=== PATIENT | male | born 1950 | race Caucasian/White ===

== ENCOUNTER 2022-12-23 12:14 | Emergency (ER) | payer MEDICARE, SELFPAY ==
--- NOTE | ~2022-12-23 | XR_ITS ---
EXAMINATION: XR chest 2V DATE: 12/23/2022 12:57 INDICATION: Mid chest pain. TECHNIQUE: Frontal and lateral views of the chest were obtained. COMPARISON: Chest 2 views 07/04/2014 FINDINGS: There is no pneumonia, pleural effusion, or pneumothorax. The heart size is normal. IMPRESSION: 1. No acute cardiopulmonary disease. Reviewed, dictated and finalized at location A.
--- NOTE | 2022-12-23 12:15 | ECG_ITS ---
Measurements Intervals [place] Rate: 104 P: 27 CA: 157 QRS: 14 QRSD: 89 T: 36 QT: 326 QTc: 429 Interpretive Statements SINUS TACHYCARDIA DELAYED PRECORDIAL R/S TRANSITION MINIMAL Q WAVES- INFERIOR LEADS BORDERLINE ECG NO PREVIOUS ECG AVAILABLE FOR COMPARISON Electronically Signed On 12-23-2022 12:32:22 CDT by Anthony Squires D.O.
[2022-12-23 12:40] LABS: Basophils Percent Auto 0.5 % (0.2-1.2); Eosinophils Absolute Auto 0.3 K/mm3 (0-0.3); Eosinophils Percent Auto 4.5 % (0-4.4); Hematocrit 50.7 % (42.0-52.0); Hemoglobin 16.6 g/dL (14.0-18.0); Immature Granulocyte Absolute 0.01 K/mm3 (0.00-0.031); Immature Granulocyte Percent A 0.2 % (0-0.5); Lymphocytes Absolute Auto 2.12 K/mm3 (0.9-3.2); Lymphocytes Percent Auto 34.2 % (18.3-44.2); Mean Corpuscular HGB Conc 32.7 g/dl (32-36); Mean Corpuscular Hemoglobin 30.3 pg (26-34); Mean Corpuscular Volume 92.5 fl (80-100); Mean Platelet Volume 9.2 fl (7.4-10.4); Monocytes Absolute Auto 0.7 K/mm3 (0.1-0.6); Monocytes Percent Auto 10.7 % (2.6-8.5); Neutrophils Absolute Auto 3.1 K/mm3 (1.3-6.7); Neutrophils Percent Auto 49.9 % (45.5-73.1); Platelet Count Result 258 k/mm3 (150-375); Red Blood Count 5.48 M/mm3 (4.6-6.20); Red Cell Distribution Width 11.9 % (11.5-14.5); White Blood Count 6.2 K/mm3 (4.5-10.0)
[2022-12-23 12:46] VITALS: BP 154/90; PULSE 87; RESP 18; TEMP 36.7; O2SAT 96
[2022-12-23 12:51] LABS: Alanine Aminotransferase 28 U/L (6-50); Albumin Level 4.5 g/dL (3.5-5.1); Alkaline Phosphatase 44 U/L (38-126); Anion Gap 10 mmol/L (8-16); Aspartate Amino Transferase 39 U/L (17-59); Bilirubin,Total 0.6 mg/dL (0.2-1.3); Blood Urea Nitrogen 20 mg/dL (9-20); Calcium 9.4 mg/dL (8.4-10.2); Carbon Dioxide 27 mmol/L (22-30); Chloride 102 mmol/L (98-107); Estimated CRCL calculation 43 ml/min; Estimated Glomerular Filt Rate 50; Glucose 94 mg/dL (65-110); Lipase 112 U/L (23-300); Potassium 4.3 mmol/L (3.4-5.0); Sodium 139 mmol/L (137-145)
[2022-12-23 12:59] LABS: INR 0.9; Prothrombin Time 12.8 Seconds (11.1-14.7)
[2022-12-23 13:00] LABS: Partial Thromboplastin Time 26.4 SECONDS (22.3-36.8)
[2022-12-23 13:39] LABS: Troponin I < 0.012 ng/mL (0.000-0.034)
--- NOTE | 2022-12-23 14:34 | ED.GENADULT ---
HPI - General Adult General Chief complaint: Chest Pain <Aniya Guzman July, Last Filed: 12/23/22 14:38> Stated complaint: chest pain <Aniya Guzman July, Last Filed: 12/23/22 14:38> Time Seen by Provider: 12/23/22 16:41 <Aniya Guzman July, Last Filed: 12/23/22 14:38> History of Present Illness HPI narrative: Oleg Loza is a 72 y/o male with PMHx of HLD, on testosterone and presents with complaints of mid chest pressure for 3 days. He states that the pressure has varried in intensity that past 3 days but has been constant. He denies any shortness of breath/ leg swelling /abdominal pain/ nausea/vomiting/ fever/chills/ cough. <Aniya Guzman July, - Last Filed: 12/23/22 14:38> Related Data Allergies/adverse reactions: Allergies Allergy/AdvReac Type Severity Reaction Status Date / Time peanut Allergy Severe Unknown Unverified 12/23/22 12:15 tree nut Allergy Severe RESPIRTORY Verified 12/23/22 12:15 <Aniya Guzman July, Last Filed: 12/23/22 14:38> Review of Systems Review of Systems: complains of mid chest pressure that is non radiating for 3 days <Aniya Guzman July, - Last Filed: 12/23/22 14:38> All systems reviewed & are unremarkable except as noted in HPI and below <Aniya Guzman July, Last Filed: 12/23/22 14:38> Exam Narrative: APPEARANCE: Well appearing, no pain, no distress, well-nourished. HEAD: normocephalic, atraumatic. EYES: PERRLA/EOMI, conjunctivae clear. NOSE: Normal no drainage EARS:TMS clear with good light reflex. THROAT: Pharynx clear, no exudate. NECK: Supple. No adenopathy, no masses. RESPIRATORY: Airway patent, respirations nonlabored. Clear to auscultation bilaterally, no rales, rhonchi, wheezing. CARDIOVASCULAR: Regular rate and rhythm without murmurs rubs or gallops. ABDOMINAL: Soft, nontender, nondistended, normal bowel sounds MUSCULOSKELETAL: Moves all extremities. Strength/ROM intact, No edema, No calf tenderness. NEURO: Alert. Cranial nerves II through XII intact. Good gait. Good coordination SKIN: Warm, dry. Normal Color PSYCHIATRIC: Normal affect/mood. <Jan Krishna MD - Last Filed: 01/01/23 19:04> Course Course Emergency Course: 72-year-old male presented ED for evaluation of left-sided chest pain. Patient had negative cell troponins negative chest x-ray EKG that showed normal sinus rhythm. Patient did have reproducible left-sided chest wall tenderness at the insertion point of the ribs on the sternum. Concern for costochondritis. Patient was updated the results of his work-up and was encouraged of close follow-up with his primary care physician for additional outpatient cardiac testing and on reasons to return to the ED. All questions concerns were addressed and patient was well-appearing at time of discharge <Jan Krishna MD - Last Filed: 01/01/23 19:04> Vital Signs Vital signs: Vital Signs Temperature 98.0 F 12/23/22 12:46 Pulse Rate 87 12/23/22 12:46 Respiratory Rate 18 12/23/22 12:46 Blood Pressure 154/90 H 12/23/22 12:46 Pulse Oximetry 96 12/23/22 12:46 Oxygen Delivery Room Air 12/23/22 12:46 Temperature 98.0 F 12/23/22 12:46 Pulse Rate 70 12/23/22 19:03 Respiratory Rate 18 12/23/22 19:03 Blood Pressure 169/96 H 12/23/22 19:03 Pulse Oximetry 100 12/23/22 19:03 Oxygen Delivery Room Air 12/23/22 14:24 <Aniya Murguia, [employer] - Last Filed: 12/23/22 14:38> Vital Signs Temperature 98.0 F 12/23/22 12:46 Pulse Rate 87 12/23/22 12:46 Respiratory Rate 18 12/23/22 12:46 Blood Pressure 154/90 H 12/23/22 12:46 Pulse Oximetry 96 12/23/22 12:46 Oxygen Delivery Room Air 12/23/22 12:46 Temperature 98.0 F 12/23/22 12:46 Pulse Rate 70 12/23/22 19:03 Respiratory Rate 18 12/23/22 19:03 Blood Pressure 169/96 H 12/23/22 19:03 Pulse Oximetry 100 12/23/22 19:03 Oxygen Delivery Room Air 12/23/22 14:24 <Jan Krishna MD - Last Filed:
[2022-12-23 16:43] LABS: Troponin I < 0.012 ng/mL (0.000-0.034)
[2022-12-23] MEDS: KETOROLAC 30 MG/ML VIAL (*BKC) IM (18:52)
[2022-12-23 19:03] VITALS: BP 169/96; PULSE 70; RESP 18; O2SAT 100
== END 2022-12-23 19:05 | disposition home or self-care (01) ==
PROVIDERS: Emergency Provider Emergency Medicine
DX: R07.89 Other chest pain (principal); E78.5 Hyperlipidemia, unspecified; R00.0 Tachycardia, unspecified
CPT/HCPCS: 36415; 71046; 80053; 83690; 84484; 85025; 85610; 85730; 93005; 96372; 99284; J1885